=== PATIENT | male | born 1990 | race Caucasian/White ===

== ENCOUNTER 2017-06-29 12:07 | Observation (INO) | payer OTHER ==
[~2017-06-29] VITALS: Ht 190.5 cm; Wt 100.7 kg
[2017-06-29] MEDS ORDERED: FLUT0.15 NAE (12:17)
[2017-06-29] MEDS ORDERED: ASTN (12:17)
[2017-06-29] MEDS ORDERED: CETI10TA10 PO (12:17)
[2017-06-29 12:59] LABS: BASO % 0.4 %; BASO ABS # 0.02 K/uL (0-0.2); COMPLETE YES; EOS % 1.8 %; HEMATOCRIT 41.4 % (42-52); IG% 0.2 %; LYMPH % 39.8 %; LYMPH ABS # 2.26 K/uL (1.2-3.4); MEAN CELL VOLUME 88.8 fL (80-100); MEAN CORPUSCULAR HEMOGLOBIN 32.6 pg (25-34); MEAN CORPUSCULAR HGB CONC 36.7 g/dl (32-36); MONO % 10.9 %; NEUT % 46.9 %; PLATELET COUNT 200 K/uL (130-400); RED BLOOD COUNT 4.66 M/uL (4.7-6.1); WHITE BLOOD COUNT 5.68 K/uL (4.8-10.8)
--- NOTE | 2017-06-29 12:59 | DIAGNOSTIC IMAGING REPORT ---
HEAD CT NONCONTRAST CT DOSE: 614.27 mGy.cm HISTORY: R facial droop TECHNIQUE: Multiaxial CT images of the head were performed without the use of intravenous contrast. Automated exposure control was utilized for this study. A dose lowering technique was utilized adhering to the principles of ALARA. Comparison: None. Findings: The paranasal sinuses and mastoid air cells are clear. The calvarium and skull base are intact. The ventricles and sulci are within normal limits. There is no mass, hematoma, midline shift, or acute infarct. Impression: No acute intracranial abnormality. Electronically signed by: James Barboza M.D. 06/29/2017 12:58 PM Dictated Date/Time: 06/29/2017 12:54 PM
[2017-06-29 13:18] LABS: INR 1.1 (0.9-1.1); PARTIAL THROMBOPLASTIN RATIO 1.1; PROTHROMBIN TIME (PATIENT) 11.4 SECONDS (9.0-12.0)
[2017-06-29] MEDS ORDERED: PHARMACIST DISCHARGE MED REC CONSULT PRN (14:15)
[2017-06-29 14:36] LABS: ESTIMATED AVERAGE GLUCOSE 97 mg/dl; HA1C FLAG Normal (Normal)
--- NOTE | 2017-06-29 14:36 | History and Physical ---
History & Physical Date & Time of Service: Jun 29, 2017 at 14:19 Chief Complaint: Rt Side Of Face Temporarily Numb, Weakness, Lighth Primary Care Physician: No Doctor, Assigned History of Present Illness Source: patient 26 y/o M - denies any medical history. Pt was in his normal state of health preparing for a hike when he developed R sided facial numbness and garbled speech. His girlfriend witnessed this and brought him to the hospital. He realized at the time that he could not speak normally. He denies any previous such episodes. He denies a history of hypercoagulable disorder, migraines or seizures. The pt's symptoms resolved on arrival to the ER. Past Medical/Surgical History Denies any medical history Family History No history of CVAs, CAD, HTN, DM Social History Does not smoke or use drugs, social drinker - runs and lifts weights Smoking Status: Never Smoker Allergies Coded Allergies: Cefaclor (Unverified Allergy, Severe, REACTION CHILD, 06/29/17) Home Medications Scheduled Azelastine Hcl (Astelin Nasal [place]), 1-2 SPRAYS NA BID Cetirizine Hcl (Zyrtec), 10 MG PO DAILY Fluticasone Propionate (Nasal) (Flonase Allergy Relief), 1 SPRAY SARAH DAILY Review of Systems Neurologic: + numbness/tingling, + problem reported (dysphasia - acute ) Physical Exam Vital Signs Date Time Temp Pulse Resp B/P (MAP) Pulse Ox O2 Delivery O2 Flow Rate FiO2 06/29/17 13:45 50 18 133/81 98 Room Air 06/29/17 12:09 37.0 59 18 135/89 98 General Appearance: WD/WN, no apparent distress Head: normocephalic, atraumatic Eyes: normal inspection, EOMI ENT: normal ENT inspection, pharynx normal Neck: supple, no JVD Respiratory/Chest: chest non-tender, lungs clear, normal breath sounds, no respiratory distress, no accessory muscle use Cardiovascular: regular rate, rhythm, no edema, no gallop Abdomen/GI: normal bowel sounds, non tender, soft Back: normal inspection, no CVA tenderness, no muscle spasm, normal range of motion Extremities/Musculoskelatal: normal inspection, no calf tenderness, normal capillary refill, no pedal edema, normal range of motion Neurologic/Psych: 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 II-XII nml as tested, no motor/sensory deficits, alert, normal mood/affect, normal reflexes, oriented x 3 Skin: normal color, warm/dry, no rash Diagnostics Laboratory Results Results Past 24 Hours Test 06/29/17 12:45 Range/Units White Blood Count 5.68 4.8-10.8 K/uL Red Blood Count 4.66 4.7-6.1 M/uL Hemoglobin 15.2 14.0-18.0 g/dL Hematocrit 41.4 42-52 % Mean Corpuscular Volume 88.8 80-100 fL Mean Corpuscular Hemoglobin 32.6 25-34 pg Mean Corpuscular Hemoglobin Concent 36.7 32-36 g/dl Platelet Count 200 130-400 K/uL Mean Platelet Volume 9.0 7.4-10.4 fL Neutrophils (%) (Auto) 46.9 % Lymphocytes (%) (Auto) 39.8 % Monocytes (%) (Auto) 10.9 % Eosinophils (%) (Auto) 1.8 % Basophils (%) (Auto) 0.4 % Neutrophils # (Auto) 2.67 1.4-6.5 K/uL Lymphocytes # (Auto) 2.26 1.2-3.4 K/uL Monocytes # (Auto) 0.62 0.11-0.59 K/uL Eosinophils # (Auto) 0.10 0-0.5 K/uL Basophils # (Auto) 0.02 0-0.2 K/uL RDW Standard Deviation 41.9 36.4-46.3 fL RDW Coefficient of Variation 12.9 11.5-14.5 % Immature Granulocyte % (Auto) 0.2 % Immature Granulocyte # (Auto) 0.01 0.00-0.02 K/uL Prothrombin Time 11.4 9.0-12.0 SECONDS Prothromb Time International Ratio 1.1 0.9-1.1 Activated Partial Thromboplast Time 28.7 21.0-31.0 SECONDS Partial Thromboplastin Ratio 1.[address] head - no acute abnormalities Impression Assessment and Plan 26 y/o M - denies any medical history. Pt was in his normal state of health preparing for a hike when he developed R sided facial numbness and garbled speech. His girlfriend witnessed this and brought him to the hospital. He realized at the time that he could not speak normally. He denies any previous such episodes. He denies a history of hypercoagulable disorder, migraines or seizures. The pt's symptoms resolved on arrival to the ER. Although suspicion for a classic CVA is low - we will admit the pt under a CVA protocol. He is active with running and weight lifting so may be at risk of vertebral dissection. We will obtain an urgent MRI, MRA head and neck. He is provided with ASA and a Statin pending neurology evaluation. A hypercoagulable workup would not be unreasonable if the above studies are negative - if emboli are confirmed an echo would be in order. An MRI with contrast and an EEG may be appropriate and will be left to the discretion of the neurologist. Full code - Heparin prophylaxis - total time for this admit including review of labs, imaging - discussion with pt and ER attending - 33 min Level of Care Telemetry Resuscitation Status FULL RESUSCITATION VTE Prophylaxis Given or contraindicated: Unfractionated heparin SQ
[2017-06-29] MEDS ORDERED: POLYETHYLENE (MIRALAX) 17 GM PACK PO PRN (15:30)
[2017-06-29] MEDS ORDERED: ACETAMINOPHEN 325 MG TAB PO PRN (15:30)
[2017-06-29] MEDS ORDERED: IV FLUIDS COMPLETED PRN (15:30)
[2017-06-29] MEDS ORDERED: ALUMINUM/MAGNESIUM/SIMETH (MAALOX MAX) 30 ML UDC PO PRN (15:30)
[2017-06-29] MEDS ORDERED: ONDANSETRON INJ 2 MG/ML 2 ML VIAL IV PRN (15:30)
[2017-06-29] MEDS ORDERED: MAGNESIUM HYDROXIDE SUSP 30 ML UDC PO PRN (15:30)
--- NOTE | 2017-06-29 16:20 | EMERGENCY ROOM VISIT NOTE ---
History First contact with patient: 12:15 Chief Complaint: NEURO SYMPTOMS Stated Complaint: RT SIDE OF FACE TEMPORARILY NUMB, WEAKNESS, LIGHTH Nursing Triage Summary: triage note pt to the ED with c/o started feeling lightheaded and legs weak and right side of face numbness started around 1115. at the time sig other reports he was slurring speach and couldn't form words facial droop and it has improved since then it was 35 sec of this then got better History of Present Illness The patient is a 26 year old white male who presents to the Emergency Room with complaints of right-sided facial paralysis that occurred earlier this morning. He reportedly lasted for about 35-40 seconds. Patient states he was standing at the sink and had just finished filling a water bottle. He began getting somewhat lightheaded, dizzy, and felt weak. He noticed he was not able to talk coherently. His came up the steps and noticed that his speech was not comprehensible. She also noticed that the right side of his face was not moving. She had him smile and the left side was able to move, but the right side did not. They're unsure if he was able to blink. He states there was no weakness in his arm or his leg. No prior history of similar episode. He denies any headache or neck pain at that point and has none now. He denies any significant medical history. He did take an allergy medication this morning, which he normally takes. He continues to feel somewhat weak but denies any dizziness. There was no nausea or vomiting. No loss of bowel or bladder control. He has been ambulatory. Patient states that he just ran a half marathon 2 days ago. No other complaints. No current change in vision or speech. No history of seizures and there was no reported seizure-like activity at the time of symptoms. Review of Systems REVIEW OF SYSTEM: HEENT: No dizziness, visual problems, hearing loss, or tinnitus. There is no difficulty swallowing and no oral lesions are present. LYMPH: No adenopathy. PULMONARY: No cough, shortness of breath, sputum production or hemoptysis. CARDIOVASCULAR: No chest pain, palpitations, shortness of breath or peripheral edema. GASTROINTESTINAL: No diarrhea, constipation, nausea, vomiting, or abdominal pain. GENITOURINARY: No dysuria, frequency, urgency or nocturia. NEUROLOGIC: No weakness, muscle tenderness, epilepsy or history of neurological problems. No history of chronic headaches. MUSCULOSKELETAL: No history of joint tenderness/swelling. No history of arthritis or arthralgias. SKIN: No rashes or lesions. PSYCHIATRIC: No history of depression or mental illness. ENDOCRINE: No history of diabetes, thyroid disorders, or abnormal hair growth. Past Medical/Surgical History Medical Problems: (1) TIA (transient ischemic attack) Medical history: Significant for seasonal allergies. Review surgeries: None Social History Smoking Status: Never Smoker Smokeless Tobacco Use: No Alcohol Use: none Drug Use: none Marital Status: Housing Status: lives with family Occupation Status: employed Current/Historical Medications Scheduled Azelastine Hcl (Astelin Nasal [place]), 1-2 SPRAYS NA BID Cetirizine Hcl (Zyrtec), 10 MG PO DAILY Fluticasone Propionate (Nasal) (Flonase Allergy Relief), 1 SPRAY SARAH DAILY Physical Exam Vital Signs Date Time Temp Pulse Resp B/P (MAP) Pulse Ox O2 Delivery O2 Flow Rate FiO2 06/29/17 13:45 50 18 133/81 98 Room Air 06/29/17 12:09 37.0 59 18 135/89 98 Physical Exam Gen.: Well-developed, well-nourished, well muscled young white male, in no acute distress. Sitting on a bed. Alert and oriented. Skin:Warm and dry with good turgor. No rashes or lesions. No ecchymosis or erythema. The patient is not diaphoretic. No abrasions. HEENT: Normocephalic atraumatic. Eyes PERRLA, EOMI. No conjunctiva or scleral injection. Ears TMs intact bilaterally with good light reflexes. No erythema or bulging. No hemotympanum. Canals are patent. Nares patent bilaterally without turbinate enlargement. No significant drainage. No epistaxis. Oropharynx without erythema or exudate. Uvula midline, oral mucosa moist. No lesions present. Lymphatics are palpated without anterior or posterior chain enlargement or tenderness. Heart: Heart RRR. No MGR. No carotid bruit. Peripheral pulses are 2+. Lungs: Lungs are clear to auscultation. No crackles rhonchi or wheezing. Good air movement. The patient is able to take a deep breath. Abdomen: Abdomen was inspected, auscultated, and palpated. Bowel sounds present x 4. Soft, nontender to palpation. No hepato-splenomegaly. No masses noted. No rebound, negative Monsalve sign. No pain over McBurney's point. No CVA tenderness. Musculoskeletal: Full range of motion of the neck. No pain with palpation of the shoulders. Full range of motion of her shoulders, elbows, wrists, hips, knees, and ankles. Symmetric strength for resisted motion of all of the above. No appreciable weakness in any of the extremities. Ambulates normally. He is able to stand on one leg and maintain balance for right and left. Neurologic: Alert and oriented 3. Cranial nerves II through XII are intact. Gross sensation is intact across all dermatomes of the upper and lower extremities by soft touch. DTRs are 2+ bilaterally at the knees. No facial asymmetry. Normal Romberg and pronator drift. Normal short and long-term recall. Medical Decision & Procedures ER Provider Diagnostic Interpretation: CT scan imaging of his head was obtained. This was read by radiology as unremarkable. Laboratory Results 06/29/17 12:45 Red Blood Count 4.66, Mean Corpuscular Volume 88.8, Mean Corpuscular Hemoglobin 32.6, Mean Corpuscular Hemoglobin Concent 36.7, Mean Platelet Volume 9.0, Neutrophils (%) (Auto) 46.9, Lymphocytes (%) (Auto) 39.8, Monocytes (%) (Auto) 10.9, Eosinophils (%) (Auto) 1.8, Basophils (%) (Auto) 0.4, Neutrophils # (Auto ) 2.67, Lymphocytes # (Auto) 2.26, Monocytes # (Auto) 0.62, Eosinophils # (Auto ) 0.10, Basophils # (Auto) 0.02 Test 06/29/17 12:45 White Blood Count 5.68 K/uL (4.8-10.8) Red Blood Count 4.66 M/uL (4.7-6.1) Hemoglobin 15.2 g/dL (14.0-18.0) Hematocrit 41.4 % (42-52) Mean Corpuscular Volume 88.8 fL (80-100) Mean Corpuscular Hemoglobin 32.6 pg (25-34) Mean Corpuscular Hemoglobin Concent 36.7 g/dl (32-36) Platelet Count 200 K/uL (130-400) Mean Platelet Volume 9.0 fL (7.4-10.4) Neutrophils (%) (Auto) 46.9 % Lymphocytes (%) (Auto) 39.8 % Monocytes (%) (Auto) 10.9 % Eosinophils (%) (Auto) 1.8 % Basophils (%) (Auto) 0.4 % Neutrophils # (Auto) 2.67 K/uL (1.4-6.5) Lymphocytes # (Auto) 2.26 K/uL (1.2-3.4) Monocytes # (Auto) 0.62 K/uL (0.11-0.59) Eosinophils # (Auto) 0.10 K/uL (0-0.5) Basophils # (Auto) 0.02 K/uL (0-0.2) RDW Standard Deviation 41.9 fL (36.4-46.3) RDW Coefficient of Variation 12.9 % (11.5-14.5) Immature Granulocyte % (Auto) 0.2 % Immature Granulocyte # (Auto) 0.01 K/uL (0.00-0.02) Prothrombin Time 11.4 SECONDS (9.0-12.0) Prothromb Time International Ratio 1.1 (0.9-1.1) Activated Partial Thromboplast Time 28.7 SECONDS (21.0-31.0) Partial Thromboplastin Ratio 1.1 Estimated Average Glucose 97 mg/dl Hemoglobin A1c 5.0 % (4.5-5.6) CBC and PT/INR were obtained. They're all unremarkable. ED Course Patient and his were educated regarding today's findings. Conservative care measures were discussed. Labs were obtained. CT scan imaging of the head was obtained. These were unremarkable. I did speak with Dr. Rivera from neurology. She recommended admission for observation overnight and additional testing including MRI/MRA. I did speak with the patient and his . They are in agreement. Patient will be admitted to the hospitalist service. Please see that dictation for final management and outcome. Patient remained stable while in the ED. No further TIA type symptoms. Care plan was discussed with Dr. Garcia. Medical Decision Possibility of stroke, TIA, Clinton's palsy, medication reaction, and near syncopal episode were considered, among others. Medication Reconcilliation Current Medication List: was personally reviewed by me Blood Pressure Screening Patient's blood pressure: Normal blood pressure Impression Primary Impression: Facial paralysis on right side Departure Information Referrals No Doctor, Assigned (PCP) Patient Instructions [facility]
[2017-06-29 16:46] VITALS: O2SAT 93
[2017-06-29] MEDS ORDERED: GADAVIST IV PRN (17:00)
[2017-06-29 17:03] VITALS: BP 146/80; PULSE 42; TEMP 36.6; O2SAT 99
--- NOTE | 2017-06-29 17:03 | DIAGNOSTIC IMAGING REPORT ---
MRI OF THE BRAIN WITHOUT CONTRAST CLINICAL HISTORY: Transient ischemic attack. Right sided facial numbness. Weakness. Lightheadedness. COMPARISON STUDY: Head CT performed earlier today. TECHNIQUE: Utilizing a 1.5 Dorie magnet and dedicated coil, multiplanar, multiecho imaging of the brain was performed without IV contrast. FINDINGS: There are no areas of restricted diffusion. No acute intracranial hemorrhage, midline shift or mass effect is present. Study is mildly compromised by motion artifact. Ventricular system is normal. Basilar cisterns are patent. Flow-voids for the major intracranial vessels are present. No intracranial masses are identified on this unenhanced exam. No parenchymal signal abnormality is identified. A focus of susceptibility artifact is noted adjacent to the left mandibular condyle. Calvarium is unremarkable. Orbits are unremarkable. IMPRESSION: No acute intracranial findings. Unremarkable unenhanced MRI of the brain. Electronically signed by: Meng Lara M.D. 06/29/2017 5:01 PM Dictated Date/Time: 06/29/2017 4:57 PM
[2017-06-29 17:05] VITALS: Ht 190.5 cm; Wt 100.7 kg
--- NOTE | 2017-06-29 17:17 | DIAGNOSTIC IMAGING REPORT ---
MRA OF THE INTRACRANIAL CIRCULATION WITHOUT CONTRAST CLINICAL HISTORY: Transient ischemic attack. Leg weakness. Right-sided facial numbness. COMPARISON STUDY: None. TECHNIQUE: Utilizing a 1.5 Dorie magnet and 3-D [id number] technique, unenhanced MRA of the intracranial circulation was obtained. FINDINGS: The bilateral M1, M2, A1 and A2 segments are patent. There is no intracranial aneurysm or abrupt vessel cut off. The posterior circulation is also intact. There is no evidence for dissection within the major intracranial vessels. IMPRESSION: Normal MRA of the intracranial circulation. Electronically signed by: Meng Lara M.D. 06/29/2017 5:15 PM Dictated Date/Time: 06/29/2017 5:14 PM
--- NOTE | 2017-06-29 17:20 | DIAGNOSTIC IMAGING REPORT ---
MRA OF THE NECK WITH AND WITHOUT CONTRAST CLINICAL HISTORY: Transient ischemic attack. Evaluate for vertebral artery dissection. COMPARISON STUDY: None. TECHNIQUE: Unenhanced and contrast-enhanced MRA of the neck was performed. Injection of 10 mL of Gadavist IV was uneventful. NASCET criteria were utilized to estimate the degree of carotid stenosis. FINDINGS: The bilateral common carotid, internal carotid and vertebral arteries are patent. There is no stenosis or dissection within these vessels. Adjacent soft tissues are unremarkable by MRI. IMPRESSION: Normal MRA of the neck. No dissection or stenosis. Electronically signed by: Meng Lara M.D. 06/29/2017 5:18 PM Dictated Date/Time: 06/29/2017 5:16 PM
[2017-06-29 20:20] VITALS: BP 133/76; PULSE 55; TEMP 36.6; O2SAT 97
[2017-06-29] MEDS: HEPARIN SOD 5000 UNIT/0.5 ML CARP SQ SCH (20:28)
[2017-06-30 00:03] VITALS: BP 113/66; PULSE 41; TEMP 36.7; O2SAT 97
[2017-06-30 04:22] VITALS: BP 128/67; PULSE 51; TEMP 36.4; O2SAT 99
[2017-06-30] MEDS: HEPARIN SOD 5000 UNIT/0.5 ML CARP SQ SCH ×2 (05:09→13:05)
[2017-06-30 07:38] LABS: BASO % 0.2 %; BASO ABS # 0.01 K/uL (0-0.2); COMPLETE YES; EOS % 2.3 %; HEMATOCRIT 44.4 % (42-52); LYMPH % 45.5 %; LYMPH ABS # 2.91 K/uL (1.2-3.4); MEAN CELL VOLUME 89.2 fL (80-100); MEAN CORPUSCULAR HEMOGLOBIN 31.3 pg (25-34); MEAN CORPUSCULAR HGB CONC 35.1 g/dl (32-36); MEAN PLATELET VOLUME 9.3 fL (7.4-10.4); MONO % 9.5 %; NEUT % 42.5 %; PLATELET COUNT 205 K/uL (130-400); RED BLOOD COUNT 4.98 M/uL (4.7-6.1)
[2017-06-30 07:39] VITALS: BP 145/86; PULSE 60; TEMP 36.5; O2SAT 97
[2017-06-30 08:15] LABS: BUN/CREATININE RATIO 14.3 (10-20); CALCIUM 9.1 mg/dl (8.5-10.1); CREATININE 0.98 mg/dl (0.60-1.40); POTASSIUM 3.9 mmol/L (3.5-5.1)
[2017-06-30] MEDS ORDERED: ASPIRIN 81 MG ECTAB PO SCH (09:00)
[2017-06-30] MEDS ORDERED: ATORVASTATIN 20 MG TAB PO SCH (09:00)
--- NOTE | 2017-06-30 10:28 | Discharge Instructions ---
Discharge Instructions Date of Service Jun 30, 2017. Admission Reason for Admission: TIA Discharge Discharge Diagnosis / Problem: TIA Discharge Goals Goal(s): Improve function, Learn about illness Activity Recommendations Activity Limitations: resume your previous activity Lifting Limitations: none Exercise/Sports Limitations: none May Resume Sexual Activity: when tolerated Shower/Bathe: no limitations Driving or Machine Use: no limitations none . Instructions / Follow-Up Instructions / Follow-Up follow with pcp in 2 weeks Current Hospital Diet Patient's current hospital diet: Regular Diet Discharge Diet Recommended Diet: Regular Diet Procedures Procedures Performed: none Pending Studies Studies pending at discharge: yes List of pending studies: hypercoag workup Laboratory Results Hemoglobin A1c Test 06/29/17 12:45 Range/Units Estimated Average Glucose 97 mg/dl Hemoglobin A1c 5.0 4.5-5.6 % Lipid Panel Test 06/30/17 07:02 Range/Units Triglycerides Level 87 0-150 mg/dl Cholesterol Level 175 0-200 mg/dl HDL Cholesterol 58 mg/dl Cholesterol/HDL Ratio 3.0 LDL Cholesterol, Calculated 100 mg/dl Medical Emergencies . Who to Call and When: Medical Emergencies: If at any time you feel your situation is an emergency, please call 911 immediately. . Non-Emergent Contact Non-Emergency issues call your: Primary Care Provider Call Non-Emergent contact if: temperature is above 101.5, your pain is not controlled . . "Provider Documentation" section prepared by Anibal Middleton . VTE Core Measure Inpt VTE Proph given/why not?: Unfractionated heparin SQ
--- NOTE | 2017-06-30 10:48 | Neurology Consultation ---
Neurology Consultation Date of Consultation: Jun 30, 2017. Attending Physician: Fausto Nova M.D. Primary Care Physician: No Doctor, Assigned Reason for Consultation: TIA-like event History of Present Illness Source: patient, spouse, clinic records, hospital records This is a 26-year-old right-handed male who presents after a TIA like events. Patient reports that he was standing in the bathroom getting ready for a hike, when he suddenly got dizzy. There may have been a slight vertiginous component to the dizziness. who is a nurse, came up to see him after he called to say that there was something wrong. She reports that his speech was coming out garbled. She had a hard time understanding him. Patient reports that there was no confusion and he was perfectly aware of everything that was going on around him. confirms that he did not appear to be confused at that time. Patient reports that the recent no numbness or weakness in his extremities. He did have a sense of numbness on his right lower face. reports that when she tested him sensation seemed to be intact but he was only speaking out of the left side of his mouth. The right side of his lower face seemed to not be able to move. His eyes and forehead seem to be symmetric though. When she had him smile he did not smile on the right. She reports that it lasted about 35 seconds and then resolved. Patient denies any shortness of breath, chest pain, heart palpitations in association. He denied any loss of vision. No double vision. No symptoms in his extremities. He reports that he did a 2 mile run the other day. He is normally active and fairly healthy. He does have environmental allergies and uses Zyrtec and nasal sprays. He denies any pseudoephedrine use. He drinks at max 3 cups of coffee in a day. No stimulant use or herbal supplements. No history of headaches or migraine headaches. No recent illnesses. Has never had any events like this in the past. No family history of clotting disorders. No family history of strokes at a young age. MRI of the brain reported images were reviewed by myself and normal MRA of the head and neck were also reviewed and unremarkable. No signs of stenosis or dissection Total cholesterol 175, LDL 100, HDL 58, triglycerides 87, hemoglobin A1c 5.0 Past Medical/Surgical History Medical Problems: (1) Facial paralysis on right side Status: Acute History of environmental allergies and TMJ Family History Family history unremarkable. No family history of strokes, heart attacks, or clotting disorders at a young age. Social History Patient is normally independent in his activities of daily living. Works out on a regular basis and runs marathons. No tobacco use. Occasional alcohol use. No illegal drug use or supplement use. 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 Smokeless Tobacco Use: No Drug Use: none Marital Status: Housing Status: lives with family Occupation Status: employed Allergies Coded Allergies: Cefaclor (Unverified Allergy, Severe, REACTION CHILD, 06/29/17) Current Inpatient Medications Current Inpatient Medications Medications (Trade) Dose Ordered Sig/Sukumar Route Start Time Stop Time Status Last Admin Dose Admin Aspirin (Ecotrin Tab) 81 mg QAM PO 06/30/17 09:00 07/30/17 08:59 06/30/17 07:46 81 MG Miscellaneous Information (Pharmacist Discharge Med Rec Consult) 1 ea UD PRN N/A 06/29/17 14:15 07/29/17 14:14 Heparin Sodium (Porcine) (Heparin Sq 5000 Unit/0.5ml) 5,000 unit Q8 SQ 06/29/17 22:00 07/29/17 21:59 Acetaminophen (Tylenol Tab) 650 mg Q4H PRN PO 06/29/17 15:30 07/29/17 15:29 Al Hydrox/Mg Hydrox/Simethicone (Maalox Max Susp) 15 ml Q4H PRN PO 06/29/17 15:30 07/29/17 15:29 Magnesium Hydroxide (Milk Of Magnesia Susp) 30 ml Q12H PRN PO 06/29/17 15:30 07/29/17 15:29 Ondansetron HCl (Zofran Inj) 4 mg Q6H PRN IV 06/29/17 15:30 07/29/17 15:29 Polyethylene (Miralax Powder Packet) 17 gm DAILY PRN PO 06/29/17 15:30 07/29/17 15:29 Miscellaneous (Iv Fluids Completed) 1 ea PRN PRN N/A 06/29/17 15:30 06/29/18 15:29 Gadobutrol (Gadavist) 10 mmol UD PRN IV 06/29/17 17:00 07/03/17 16:59 Review of Systems Complete review of systems otherwise negative except for the above noted in history of present illness. Physical Exam Vital Signs (Past 24 Hrs): Date Time Temp Pulse Resp B/P (MAP) Pulse Ox O2 Delivery O2 Flow Rate FiO2 06/30/17 08:00 Room Air 06/30/17 07:39 36.5 60 18 145/86 (105) 97 Room Air 06/30/17 04:22 36.4 51 16 128/67 (87) 99 Room Air 06/30/17 04:00 Room Air 06/30/17 00:03 36.7 41 20 113/66 (82) 97 Room Air 06/30/17 00:00 Room Air 06/29/17 20:20 36.6 55 20 133/76 (95) 97 Room Air 06/29/17 20:00 Room Air 06/29/17 17:37 Room Air 06/29/17 17:03 36.6 42 18 146/80 (102) 99 Room Air 06/29/17 16:46 37.0 53 18 146/82 93 06/29/17 16:45 53 18 146/82 93 06/29/17 13:45 50 18 133/81 98 Room Air 06/29/17 12:09 37.0 59 18 135/89 98 Gen.: Patient is alert and sitting in bed, in no acute distress. HEENT: Normocephalic /atraumatic, no scleral icterus Heart: Regular rate and rhythm Extremities: No gross deformities or rashes noted Neurological examination: Mental status: Patient is alert and oriented x3. Attention and concentration normal for the situation. Good fund of knowledge. Able to give his own history. Speech is fluent without any dysarthria or aphasia noted Cranial nerve: Funduscopic examination was unremarkable. No papilledema. Pupils equally round and reactive to light. Extraocular muscles intact without nystagmus. No facial asymmetry noted. Facial sensation intact. Tongue is midline. Good palatal elevation. Good shoulder shrug bilaterally. Hearing grossly intact to voice. Strength: 5/5 both proximal and distally in all extremities. There is no arm drift. Tone is normal. Sensation: Grossly intact to light touch in all extremities. Deep tendon reflexes: +2 in bilateral biceps, brachioradialis and patellar. Coordination: Patient had good finger to nose without dysmetria Station within the bed was normal Blood pressure during this admission has ranged from 113/66-146/105 Laboratory Results Past 24 Hours: 06/30/17 07:02 Red Blood Count 4.98, Mean Corpuscular Volume 89.2, Mean Corpuscular Hemoglobin 31.3, Mean Corpuscular Hemoglobin Concent 35.1, Mean Platelet Volume 9.3, Neutrophils (%) (Auto) 42.5, Lymphocytes (%) (Auto) 45.5, Monocytes (%) (Auto) 9.5, Eosinophils (%) (Auto) 2.3, Basophils (%) (Auto) 0.2, Neutrophils # (Auto) 2.72, Lymphocytes # (Auto) 2.91, Monocytes # (Auto) 0.61, Eosinophils # (Auto) 0.15, Basophils # (Auto) 0.01 06/30/17 07:02 Test 06/29/17 12:45 06/30/17 07:02 Prothrombin Time 11.4 SECONDS (9.0-12.0) Prothromb Time International Ratio 1.1 (0.9-1.1) Activated Partial Thromboplast Time 28.7 SECONDS (21.0-31.0) Partial Thromboplastin Ratio 1.1 Estimated Average Glucose 97 mg/dl Hemoglobin A1c 5.0 % (4.5-5.6) White Blood Count 6.40 K/uL (4.8-10.8) Red Blood Count 4.98 M/uL (4.7-6.1) Hemoglobin 15.6 g/dL (14.0-18.0) Hematocrit 44.4 % (42-52) Mean Corpuscular Volume 89.2 fL (80-100) Mean Corpuscular Hemoglobin 31.3 pg (25-34) Mean Corpuscular Hemoglobin Concent 35.1 g/dl (32-36) Platelet Count 205 K/uL (130-400) Mean Platelet Volume 9.3 fL (7.4-10.4) Neutrophils (%) (Auto) 42.5 % Lymphocytes (%) (Auto) 45.5 % Monocytes (%) (Auto) 9.5 % Eosinophils (%) (Auto) 2.3 % Basophils (%) (Auto) 0.2 % Neutrophils # (Auto) 2.72 K/uL (1.4-6.5) Lymphocytes # (Auto) 2.91 K/uL (1.2-3.4) Monocytes # (Auto) 0.61 K/uL (0.11-0.59) Eosinophils # (Auto) 0.15 K/uL (0-0.5) Basophils # (Auto) 0.01 K/uL (0-0.2) RDW Standard Deviation 42.2 fL (36.4-46.3) RDW Coefficient of Variation 13.0 % (11.5-14.5) Immature Granulocyte % (Auto) 0.0 % Immature Granulocyte # (Auto) 0.00 K/uL (0.00-0.02) Anion Gap 5.0 mmol/L (3-11) Est Creatinine Clear Calc Drug Dose 136.5 ml/min Estimated GFR () 122.8 Estimated GFR (Non- 106.0 BUN/Creatinine Ratio 14.3 (10-20) Calcium Level 9.1 mg/dl (8.5-10.1) Triglycerides Level 87 mg/dl (0-150) Cholesterol Level 175 mg/dl (0-200) HDL Cholesterol 58 mg/dl LDL Cholesterol, Calculated 100 mg/dl VLDL Cholesterol, Calculated 17 mg/dl Cholesterol/HDL Ratio 3.0 Imaging as noted above in history of present illness Impression This is a 26-year-old male who had what appears to be TIA lasting less than 1 minute. While symptoms of dizziness and speech distortion can be nonspecific, the fact that he had clear right lower facial paralysis for less than a minute is highly concerning for a TIA. Differential diagnosis could include a very focal seizure, although there is no other evidence for this. Patient has no history or symptoms of migraine headaches. Patient does not have any known stroke risk factors at this time. Plan Follow up echocardiogram results to rule out structural heart conditions that could cause stroke. Discussed that if he only has a small PFO that would not change attendant at this time. Recommend aspirin 81 mg daily for secondary stroke prevention. Considering his age, and it is unlikely that atherosclerotic disease is contributing to any stroke symptoms, and his cholesterol numbers are within goal , I do not think that he used to be on a cholesterol medication at this time. I did inform him that his LDL is borderline and will need to be followed in the future. Went over stroke signs and symptoms with the patient and . Discussed that if he ever has any sudden new hemisensory deficits, hemiplegia, facial droop, loss of vision, loss of speech, can't walk, etc. these would all be reasons to return to the emergency room for evaluation. Discussed with the patient that it is okay to resume normal exercise routine as this will not cause him to have a stroke. Advised that he stay away from any supplement stimulants, weight loss stimulants, or pseudoephedrine medications. Recommend that he maintain good hydration. I have ordered a hypercoagulable workup this morning and results will likely take several weeks to come back. We'll follow-up hypercoagulable workup as an outpatient. did ask if he'll need to be on antiplatelets indefinitely if everything comes back normal and he has no additional events. We'll have to consider this in the future depending on results of workup as an outpatient, but my preference at least for the next couple years is to remain on a daily low-dose aspirin. Stroke risk factor modifications and recommendations: Blood pressure recommendations for the first month post hospital discharge 150/ 90-130/80, and after that blood pressure recommendations 130/80-110/70 Total cholesterol goal 100- 200 and LDL goal less than 100 (at goal) Hemoglobin A1c goal less than 7 (at goal) Encourage cardiovascular exercise at least 3 times a week for 30 minutes. (at goal) Follow-up in neurology clinic in 1 month for post TIA hospital follow-up. I will also set him up for a 1 hour extended EEG to rule out signs of epilepsy as an outpatient. If there is any questions or concerns, feel free to call/page me. If echocardiogram has no major abnormalities, there is no neurologic contraindication to discharge later today.
[2017-06-30] MEDS ORDERED: ASPEC81 PO (11:07)
[2017-06-30 12:01] VITALS: BP 153/76; PULSE 53; TEMP 36.8; O2SAT 97
--- NOTE | 2017-06-30 12:37 | Discharge Summary ---
Discharge Summary Date of Service Jun 30, 2017. Discharge Summary Admission Date: Jun 29, 2017 at 15:23 Discharge Date: Jun 30, 2017 Discharge Disposition: Home Principal Diagnosis: TIA Consultations: neurology Referrals At Discharge Follow up Referrals: Neurologist Referral - Within a Month with Sherrell Montoya D.O. Discharge Exam 26 y/o M - denies any medical history. Pt was in his normal state of health preparing for a hike when he developed R sided facial numbness and garbled speech. His girlfriend witnessed this and brought him to the hospital. He realized at the time that he could not speak normally. He denies any previous such episodes. He denies a history of hypercoagulable disorder, migraines or seizures. The pt's symptoms resolved on arrival to the ER. Review of Systems: Constitutional: No fever, No chills, No sweats, No weight loss, No weakness Eyes: No worsening of vision, No eye pain, No redness, No discharge, No diplopia Respiratory: No sputum, No wheezing Cardiovascular: No chest pain, No orthopnea, No PND, No edema, No claudication, No palpitations, No problem reported Abdomen: No pain, No nausea, No vomiting, No diarrhea, No constipation Neurologic: No memory loss, No paralysis, No weakness, No numbness/tingling , No vertigo, No balance problems, No problem reported Endocrine: No fatigue Hematologic / Lymphatic: No abnormal bleeding/bruising, No clotting problems , No night sweats Integumentary: No rash Physical Exam: General Appearance: WD/WN, no apparent distress Eyes: normal inspection, sclerae normal Neck: supple, no adenopathy, no carotid bruits Respiratory/Chest: chest non-tender, normal breath sounds, no respiratory distress, no accessory muscle use Cardiovascular: regular rate, rhythm, no edema, no JVD, no murmur, normal peripheral pulses Abdomen / GI: non tender, soft, no organomegaly Extremities: normal inspection, no calf tenderness, normal capillary refill , no pedal edema 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 While symptoms of dizziness and speech distortion can be nonspecific, the fact that he had clear right lower facial paralysis for less than a minute is highly concerning for a TIA. Differential diagnosis could include a very focal seizure, although there is no other evidence for this. Patient has no history or symptoms of migraine headaches. Patient does not have any known stroke risk factors at this time. Echocardiogram shows no structural heart conditions but a small PFO that would not guide changer at this time. Discuss with neurologist production control scheduler and stated she may order out patient FIFI. Recommend aspirin 81 mg daily for secondary stroke prevention. Considering his age, and it is unlikely that atherosclerotic disease is contributing to any stroke symptoms, and his cholesterol numbers are within goal , I do not think that he used to be on a cholesterol medication at this time. I did inform him that his LDL is borderline and will need to be followed in the future. Went over stroke signs and symptoms with the patient and . Discussed that if he ever has any sudden new hemisensory deficits, hemiplegia, facial droop, loss of vision, loss of speech, can't walk, etc. these would all be reasons to return to the emergency room for evaluation. Discussed with the patient that it is okay to resume normal exercise routine as this will not cause him to have a stroke. Advised that he stay away from any supplement stimulants, weight loss stimulants, or pseudoephedrine medications. Recommend that he maintain good hydration. Hypercoagulable workup this morning and results will likely take several weeks to come back. Follow-up hypercoagulable workup as an outpatient. did ask if he'll need to be on antiplatelets indefinitely if everything comes back normal and he has no additional events. We'll have to consider this in the future depending on results of workup as an outpatient, but my preference at least for the next couple years is to remain on a daily low-dose aspirin. Stroke risk factor modifications and recommendations: Blood pressure recommendations for the first month post hospital discharge 150/ 90-130/80, and after that blood pressure recommendations 130/80-110/70 Total cholesterol goal 100- 200 and LDL goal less than 100 (at goal) Hemoglobin A1c goal less than 7 (at goal) Encourage cardiovascular exercise at least 3 times a week for 30 minutes. (at goal) Follow-up in neurology clinic in 1 month for post TIA hospital follow-up. I will also set him up for a 1 hour extended EEG to rule out signs of epilepsy as an outpatient. Total Time Spent: Greater than 30 minutes This includes examination of the patient, discharge planning, medication reconciliation, and communication with other providers. Discharge Instructions Please refer to the electronic Patient Visit Report (Discharge Instructions) for additional information. Follow-Up with pcp in 1 week with neurology in month Additional Copies To Sherrell Montoya D.O.
[2017-06-30 12:46] VITALS: BP 153/76; PULSE 53; TEMP 36.8; O2SAT 97
--- NOTE | 2017-06-30 13:39 | Pharmacy Progress Note ---
Pharmacist Stroke Counseling Date of Service Jun 30, 2017. Scope Pharmacy has been consulted to provide medication discharge counseling for this patient admitted with ischemic stroke/hemorrhagic stroke/ transient ischemic attack as per the Pharmacist Discharge Counseling for Stroke Patients Protocol. Medications on Discharge New Medications: Aspirin (Aspirin EC Low Dose) 81 Mg Ectab 81 MG PO QAM for 30 Days, #30 Continued Medications: Azelastine Hcl (Astelin Nasal [place]) 200 Sprays/30 Ml Ider 1-2 SPRAYS NA BID Cetirizine Hcl (Zyrtec) 10 Mg Tab 10 MG PO DAILY Fluticasone Propionate (Nasal) (Flonase Allergy Relief) 50 Mcg/Act Spr 1 SPRAY SARAH DAILY Action The above medications, specifically ones for stroke treatment/prophylaxis, were not reviewed in detail with the patient and/or patient internet sales representative(s) prior to discharge. Outcome The patient and/or patient internet sales representative(s) declined discharge counseling. His girlfriend is a nurse and he does not take any chronic prescription medications. Thank you for allowing pharmacy to be involved in the care of this patient. Please call [phone] or [phone] with any additional questions
--- NOTE | 2017-07-01 08:37 | ECHOCARDIOGRAM REPORT ---
*NOTICE TO RECEIVING CONSTITUTION PARTY AGENCY This information is strictly Confidential and protected under [place] law. [place] law prohibits you from making any further disclosure of this information unless further disclosure is expressly permitted by the written consent of the person to whom it pertains or is authorized by law. A general authorization for the release of medical or other information is not sufficient for this purpose. Hospital accepts no responsibility if the information is made available to any other person, INCLUDING THE PATIENT. Interpretation Summary * Name: VAL KERR Study Date: 06/30/2017 06:25 AM BP: 128/67 mmHg * Patient Location: [facility] HR: 51 * : 1990 (M/d/yyyy) Gender: Male Height: 75 in * Age: 26 yrs Ethnicity: CA Weight: 223 lb * Ordering Physician: Sherrell Montoya * Referring Physician: Self, Referred * Performed By: Saira Colvin RDCS * * Reason For Study: TIA * BSA: 2.3 m2 * -- Conclusions -- * Left ventricular systolic function is normal. * No regional wall motion abnormalities noted. * Ejection Fraction = 60-65%. * A patent foramen ovale is present. Procedure Details * A complete two-dimensional transthoracic echocardiogram was performed (2D, M-mode, Doppler and color flow Doppler). * A saline contrast injection was performed to assess for cardiac shunting. * The injection was performed through an intravenous line in the left arm. * The attending nurse who injected the saline contrast was Kanchan Walker RN. * A total of 20 cc of agitated saline was given. Left Ventricle * The left ventricle is normal in size. * There is normal left ventricular wall thickness. * Ejection Fraction = 60-65%. * Left ventricular systolic function is normal. * No regional wall motion abnormalities noted. Right Ventricle * The right ventricle is grossly normal size. * The right ventricular systolic function is normal as assessed by tricuspid annular plane systolic excursion (TAPSE) (normal >1.5 cm). Atria * The left atrium is mildly dilated. * Right atrial size is normal. * The interatrial septum bows toward right atrium consistent with elevated left atrial pressure. * Injection of contrast documented an interatrial shunt. * A patent foramen ovale is present. Mitral Valve * The mitral valve is grossly normal. * There is no mitral valve stenosis. * Significant mitral regurgitation is absent. Tricuspid Valve * The tricuspid valve is not well visualized, but is grossly normal. * There is no tricuspid stenosis. * Significant tricuspid regurgitation is absent. Aortic Valve * The aortic valve is normal in structure and function. * No hemodynamically significant valvular aortic stenosis. * There is no significant aortic regurgitation. Pulmonic Valve * The pulmonary valve is not well seen, but the Doppler examination is normal without significant regurgitation or stenosis. Great Vessels * The aortic root is normal size. * The pulmonary is not well visualized. Pericardium/Pleural * There is no pericardial effusion. * There is no pleural effusion. Great Vessels * Normal inferior vena cava size and collapsability with sniff indicates a normal right atrial pressure of 3 mmHg MMode 2D Measurements and Calculations IVSd 0.94 cm LVIDd 5.2 cm LVIDs 3.5 cm LVPWd 1.0 cm IVS/LVPW 0.92 FS 32.2 % EDV(Teich) 127.3 ml ESV(Teich) 50.8 ml EF(Teich) 60.1 % EDV(cubed) 137.5 ml ESV(cubed) 42.8 ml EF(cubed) 68.8 % LV mass(C)d 188.1 grams LV mass(C)dI 81.9 grams/m\S\2 CO(Teich) 3.7 l/min CI(Teich) 1.6 l/min/m\S\2 SV(Teich) 76.4 ml SI(Teich) 33.3 ml/m\S\2 CO(cubed) 4.5 l/min CI(cubed) 2.0 l/min/m\S\2 SV(cubed) 94.6 ml SI(cubed) 41.2 ml/m\S\2 Ao root diam 2.8 cm Ao root area 6.2 cm\S\2 ACS 2.4 cm LA dimension 3.7 cm asc Aorta Diam 2.5 cm LA/Ao 1.3 LVOT diam 2.0 cm LVOT area 3.1 cm\S\2 LVAd ap4 36.1 cm\S\2 LVLd ap4 8.2 cm EDV(MOD-sp4) 131.0 ml LVAs ap4 20.7 cm\S\2 LVLs ap4 6.6 cm ESV(MOD-sp4) 53.2 ml EF(MOD-sp4) 59.4 % LVAd ap2 34.3 cm\S\2 LVLd ap2 8.1 cm EDV(MOD-sp2) 124.0 ml LVAs ap2 19.6 cm\S\2 LVLs ap2 6.5 cm ESV(MOD-sp2) 48.9 ml EF(MOD-sp2) 60.6 % CO(MOD-sp4) 3.7 l/min CI(MOD-sp4) 1.6 l/min/m\S\2 SV(MOD-sp4) 77.8 ml SI(MOD-sp4) 33.9 ml/m\S\2 CO(MOD-sp2) 3.6 l/min CI(MOD-sp2) 1.6 l/min/m\S\2 SV(MOD-sp2) 75.1 ml SI(MOD-sp2) 32.7 ml/m\S\2 Doppler Measurements and Calculations MV E max elvie 81.0 cm/sec MV A max elvie 35.4 cm/sec MV E/A 2.3 MV dec time 0.29 sec Ao V2 max 126.9 cm/sec Ao max PG 6.4 mmHg Ao max PG (full) 2.3 mmHg WENDY(V,A) 2.5 cm\S\2 WENDY(V,D) 2.5 cm\S\2 LV V1 max PG 4.2 mmHg LV V1 max 101.9 cm/sec PA V2 max 114.0 cm/sec PA max PG 5.2 mmHg PA acc slope 445.3 cm/sec\S\2 PA acc time 0.15 sec TR max elvie 200.7 cm/sec PA pr(Accel) 10.9 mmHg
[2017-07-09 09:27] LABS: ANTITHROMBINIII ACTIVITY** 101 % activity (80-120); B2 GLYCOPROTEIN IGA <9 SAU (<=20); B2 GLYCOPROTEIN IGG <9 SGU (<=20); B2 GLYCOPROTEIN IGM <9 SMU (<=20); LUPUS ANTICOAGULANT** TC36573X Negative (Negative); PROTEIN C ACTIVITY** TC 1777X 94 % (70-180)
== END 2017-06-30 13:57 | disposition home or self-care (01) ==
LOC: C.EDB 12:08 → C.MED 15:23 → ENRESERV 15:47
PROVIDERS: ADMIT Internal Medicine; ATTEND Internal Medicine
DX: G45.9 Transient cerebral ischemic attack, unspecified (principal)

== ENCOUNTER → 2017-07-11 | Outpatient (CLI) | payer OTHER ==
[~2017-07-11] MED LIST: ASPEC81 PO; ASTN; CETI10TA10 PO; FLUT0.15 NAE
--- NOTE | 2017-07-13 11:57 | EEG Procedure Note ---
EEG Procedure Note Date of Service Jul 11, 2017. Start / End Times Start Time: 1:39pm End Time: 2:49pm Referring Physician Sherrell Montoya History 26yr old male with TIA episode of right face numbness. EEG for further evaluation of possible seizure etiology. Home Medication List Scheduled Aspirin (Aspirin EC Low Dose), 81 MG PO QAM Azelastine Hcl (Astelin Nasal [place]), 1-2 SPRAYS NA BID Cetirizine Hcl (Zyrtec), 10 MG PO DAILY Fluticasone Propionate (Nasal) (Flonase Allergy Relief), 1 SPRAY SARAH DAILY Description This is a 21 electrode EEG with a single channel dedicated to limited EKG. The electrodes were placed in accordance with the International 10-20 system. At the start of the recording the patient was in an awake state. The background was well organized and composed of symmetric mixed alpha and beta frequencies. There was a well formed symmetric moderate amplitude posterior dominant rhythm of 11-12Hz that was reactive to eye opening and closure. Hyperventilation did not produce any abnormalities. Photic stimulation at various frequencies produced no abnormalities. Sleep was indicated by vertex waves and symmetric sleep spindles Interpretation This is a normal awake and asleep 1hr extended EEG There was no electrographic seizures or epileptiform discharges. Clinical Correlation A normal EEG does not rule out epilepsy if there is a strong clinical suspicion.
== END | disposition home or self-care (01) ==
LOC: C.NEUR 13:21
PROVIDERS: ATTEND Psychiatry & Neurology Neurology
DX: G45.9 Transient cerebral ischemic attack, unspecified (principal)

== ENCOUNTER → 2017-07-18 | Outpatient (CLI) | payer OTHER ==
[2017-07-18] VITALS (9 sets, daily range): BP systolic 125–143; BP diastolic 62–81; PULSE 46–54; TEMP 36.8; O2SAT 92–99; Ht 190.5 cm; Wt 100.0 kg
[~2017-07-18] VITALS: Ht 190.5 cm; Wt 100.0 kg
[~2017-07-18] MED LIST changes: +BENZOCAIN/TETRACA/BUTAM SPRAY 200 APPLN/20 GM SPRY ONE; +CANNULA ONE; +FENTANYL CITRATE INJ 50 MCG/1 ML 2 ML VIAL ONE; +MIDAZOLAM HCL 1 MG/ML 2ML VIAL ONE
--- NOTE | 2017-07-18 10:19 | Discharge Instructions ---
Discharge Instructions Procedure Procedure Date: Jul 18, 2017. Reason for Visit: Pfo, *Dr Núñez To Do*. Discharge Discharge Date: Jul 18, 2017. Discharge Diagnosis: TIA Last Recorded Wt (Kilograms): 100 Anesthesia Post Anesthesia Instructions: If you have had General Anesthesia or IV Sedation: * Do not drive today. * Resume driving when surgeon permits. * Do not make important decisions or sign legal documents today. * Call surgeon for: 1. Temperature elevations greater than 101 degrees F. 2. Uncontrollable pain. 3. Excessive bleeding. 4. Persistent nausea and vomiting. 5. Medication intolerance (nausea, vomiting or rash). * For nausea and vomiting use only clear liquids such as: tea, soda, bouillon until nausea subsides, then gradually increase diet as tolerated. * If you have any concerns or questions, call your surgeon's office. If physician is unavailable and it is an emergency, call 911 or go to the nearest emergency room. Instructions Activity Recommendations: no limitations Recommended Home Diet: resume previous diet Allergies: Coded Allergies: Cefaclor (Unverified Allergy, Severe, REACTION CHILD, 06/29/17) Follow Up Follow-up with: WILL ARRANGE FOR FOLLOW UP WITH [facility] Diamond Azar Recommendations: Call your doctor if: * Temperature above 101 degrees * Pain not relieved by pain medicine ordered * There is increased drainage or redness from any incision * You have any unanswered questions or concerns. Your Doctors Instructions noted above were prepared by provider Bubba Núñez. Patient Signature Section: Patient Instructions Signature Page Oneil Patel Patient (or Guardian) Signature/Date: I have read and understand the instructions given to me by my caregivers. Caregiver/RN/Doctor Signature/Date: The above-named patient and/or guardian has received patient instructions on this date. + Original Patient Signature Page (only) stays with chart. Please make copy for patient.
--- NOTE | 2017-07-18 18:50 | TEE ---
*NOTICE TO RECEIVING [employer] AGENCY This information is strictly Confidential and protected under [place] law. [place] law prohibits you from making any further disclosure of this information unless further disclosure is expressly permitted by the written consent of the person to whom it pertains or is authorized by law. A general authorization for the release of medical or other information is not sufficient for this purpose. Hospital accepts no responsibility if the information is made available to any other person, INCLUDING THE PATIENT. Interpretation Summary * Name: VAL KERR Study Date: 07/18/2017 08:12 AM BP: 132/79 mmHg * Patient Location: [facility] HR: 51 * : 1990 (M/d/yyyy) Gender: Male Height: 75 in * Age: 26 yrs Ethnicity: CA Weight: 220 lb * Ordering Physician: MD Raymundo Núñez MD * Performed By: Emily Hawthorne * * Reason For Study: PFO * BSA: 2.3 m2 * -- Conclusions -- * 1. Normal LV size, wall thickness and function. LVEF 55-60%. No regional wall motion abnormalities. * 2. Normal RV size and function. * 3. Trace MR, TR and CA. * 4. Floppy interatrial septum with fenestrated secundum atrial septal defect (at least 2 fenestrations) and constant left to right flow by doppler. Aortic rim <5 mm. Small right to left shunt with saline contrast injection and valsalva. Procedure Details * The transesophageal portion of this study was personally supervised by the undersigned interpreting physician. * FIFI Probe #2 utilized for procedure. * The study was performed in Cardiopulmonary Department. * Time out was conducted by the physician, nurse, and pharmacy technician instructor with positive identification of patient and procedure. * Informed consent for Transesophageal Echocardiogram was obtained prior to the procedure. * An intravenous line was placed. A topical anesthetic agent was used for oropharangeal anesthesia. A bite block was inserted. * The patient's vital signs, including blood pressure, heart rate, pulse oximetry and cardiac rhythm were monitored throughout the procedure . * Midazolam 5 mg administered for sedation. * Fentanyl 125 mcg was administered for procedural sedation. * The posterior oropharynx was anesthetized using a topical anesthetic spray. A bite guard was inserted. * A multifrequency, multiplane transesopheageal echocardiographic endoscope was inserted and manipulated in the standard fashion to achieve multiplane views. * The usual views were obtained; basal, mid-esophageal, transgastric and aortic views. * The patient tolerated the procedure well without evidence of orophangeal or esophageal trauma. * A 2D transesophageal echocardiogram with spectral and color flow Doppler was performed. * Contrast injection with agitated saline was performed. * Start time was 9:00am, probe inserted at 9:14am and the probe was taken out at 9:30am. * A 2D transesophageal echocardiogram was performed. * A 2D transesophageal echocardiogram with color flow Doppler was performed. * A 2D transesophageal echocardiogram with Doppler and color flow Doppler was performed. Left Ventricle * The left ventricle is grossly normal size. * There is normal left ventricular wall thickness. * Ejection Fraction = 55-60%. Right Ventricle * The right ventricle is grossly normal size. * The right ventricular systolic function is qualitatively normal. Atria * The left atrial size is normal. * No left atrial mass or thrombus visualized. * Right atrial size is normal. * A secundum type atrial septal defect is present. * The atrial septal defect is small. * Doppler suggests left to right interatrial shunt. * Floppy interatrial septum with at least 2 fenestrations and constant left to right flow by doppler. Small right to left shunt with saline contrast injection and valsalva. Aortic rim <5 mm. Mitral Valve * The mitral valve leaflets appear normal. There is no evidence of stenosis, fluttering, or prolapse. * There is no mitral valve stenosis. * There is trace mitral regurgitation. Tricuspid Valve * The tricuspid valve anatomy is normal. * There is trace tricuspid regurgitation. Aortic Valve * The aortic valve is tricuspid. The leaflet thickness if normal. There is no aortic stenosis, and no significant insufficiency. * The aortic valve opens well. * No hemodynamically significant valvular aortic stenosis. * There is no significant aortic regurgitation. Pulmonic Valve * The pulmonary valve is inadequately visualized, but the Doppler data is adequate for interpretation. * There is no pulmonic valvular stenosis. * Trace pulmonic valvular regurgitation. Great Vessels * The aortic root and proximal ascending aorta are normal sized. Pericardium * There is no pericardial effusion. * There is no pleural effusion.
== END | disposition home or self-care (01) ==
LOC: C.CPL 07:36
PROVIDERS: ATTEND Internal Medicine Interventional Cardiology
DX: G45.9 Transient cerebral ischemic attack, unspecified (principal); Q21.1 Atrial septal defect

== ENCOUNTER → 2017-10-08 | Outpatient (CLI) | payer OTHER ==
[~2017-10-08] MED LIST changes: -BENZOCAIN/TETRACA/BUTAM SPRAY 200 APPLN/20 GM SPRY ONE; -CANNULA ONE; -FENTANYL CITRATE INJ 50 MCG/1 ML 2 ML VIAL ONE; -MIDAZOLAM HCL 1 MG/ML 2ML VIAL ONE
== END | disposition home or self-care (01) ==
LOC: C.LAB 17:56
PROVIDERS: ATTEND Internal Medicine Interventional Cardiology
DX: Q21.1 Atrial septal defect (principal); G45.9 Transient cerebral ischemic attack, unspecified

== ENCOUNTER → 2017-10-28 | Outpatient (CLI) | payer OTHER ==
[2017-10-28 10:05] LABS: BASO % 0.1 %; BASO ABS # 0.01 K/uL (0-0.2); COMPLETE YES; EOS % 1.3 %; HEMATOCRIT 42.7 % (42-52); IG% 0.1 %; LYMPH % 32.8 %; LYMPH ABS # 2.32 K/uL (1.2-3.4); MEAN CELL VOLUME 87.7 fL (80-100); MEAN CORPUSCULAR HEMOGLOBIN 31.6 pg (25-34); MEAN CORPUSCULAR HGB CONC 36.1 g/dl (32-36); MEAN PLATELET VOLUME 8.8 fL (7.4-10.4); MONO % 10.5 %; NEUT % 55.2 %; PLATELET COUNT 191 K/uL (130-400); RED BLOOD COUNT 4.87 M/uL (4.7-6.1); WHITE BLOOD COUNT 7.08 K/uL (4.8-10.8)
--- NOTE | 2017-10-28 10:05 | DIAGNOSTIC IMAGING REPORT ---
CHEST 2 VIEWS ROUTINE CLINICAL HISTORY: ASD, PREOP TESTING COMPARISON STUDY: No previous studies for comparison. FINDINGS: The bones soft tissues and hemidiaphragms are normal. The cardiomediastinal silhouette is normal. The lungs are clear. The pulmonary vasculature is normal. IMPRESSION: Negative chest. The above report was generated using voice recognition software. It may contain grammatical, syntax or spelling errors. Electronically signed by: Jonatan Ling M.D. 10/28/2017 10:04 AM Dictated Date/Time: 10/28/2017 10:04 AM
[2017-10-28 10:16] LABS: PROTHROMBIN TIME (PATIENT) 10.9 SECONDS (9.0-12.0)
[2017-10-28 10:40] LABS: BLOOD UREA NITROGEN 14 mg/dl (7-18); CARBON DIOXIDE 29 mmol/L (21-32); CHLORIDE 102 mmol/L (98-107); CREATININE 1.05 mg/dl (0.60-1.40); POTASSIUM 3.9 mmol/L (3.5-5.1); SODIUM 137 mmol/L (136-145)
[2017-10-28 12:43] LABS: URINE APPEARANCE CLEAR (CLEAR); URINE BILIRUBIN NEG (NEG); URINE COLOR YELLOW; URINE NITRITE NEG (NEG); URINE SPECIFIC GRAVITY 1.013 (1.000-1.030); UROBILINOGEN NEG (NEG)
[2017-10-28 12:57] LABS: MANUAL MICROSCOPIC REQUIRED? NO; REVIEW REQ? NO
== END | disposition home or self-care (01) ==
LOC: C.RAD 09:10
PROVIDERS: ATTEND Internal Medicine Interventional Cardiology
DX: Z01.818 Encounter for other preprocedural examination (principal); Q21.1 Atrial septal defect